=== PATIENT | female | born 1975 ===

== ENCOUNTER → 2022-03-11 15:30 | Outpatient (CLI) | payer OTHER, SELFPAY ==
--- NOTE | ~2022-03-11 | MR_ITS ---
EXAMINATION: MR shoulder RT wo con DATE: 03/11/2022 17:24 INDICATION: Right shoulder pain TECHNIQUE: Magnetic resonance imaging (MRI) of the right shoulder was performed without intravenous c ontrast. Sequences included axial PD-weighted FS FSE, coronal oblique PD-weighted FS FSE, coronal obl ique T2-weighted FS FSE, sagittal PD-weighted FS FSE, and sagittal T1-weighted SE. COMPARISON: None. FINDINGS: Coracoacromial arch: The acromion undersurface is curved in morphology (type II). The coracoacromial ligament is normal. S evere arthrosis at the acromioclavicular joint with severe joint space narrowing, subarticular cystli ke and prominent subarticular edema-like marrow signal changes at both sides of the joint space. Rotator cuff: The supraspinatus, infraspinatus and teres minor tendons are normal. The subscapularis tendon is norm al. Normal rotator cuff muscle bulk and signal. Biceps tendon, glenoid labrum and glenohumeral cartilage: Long head of the biceps tendon is normal. Glenoid labrum is normal. Glenohumeral cartilage is normal. Fluid: Physiologic amount of fluid in the glenohumeral joint and biceps tendon sheath. No loose osteochondr al bodies. No abnormal fluid signal in the subacromial/subdeltoid bursa to suggest bursitis. Bones: Aside from at the acromioclavicular joint there is normal marrow signal. No fracture or pathologic ma rrow replacing process. IMPRESSION: 1. Severe arthrosis at the right acromioclavicular joint with prominent subarticular edema-like and c ystlike changes. Scattered be related to severe osteoarthritis although the cystlike changes could al so represent erosions in the setting of an inflammatory or crystalline arthritis. Reviewed, dictated and finalized at location A. IMPRESSION: 1. Severe arthrosis at the right acromioclavicular joint with prominent subarti cular edema-like and cystlike changes. Scattered be related to severe osteoarth ritis although the cystlike changes could also represent erosions in the settin g of an inflammatory or crystalline arthritis.
== END ==
PROVIDERS: PCP Family Medicine; Visit Provider Orthopaedic Surgery
DX: M19.011 Primary osteoarthritis, right shoulder (principal)
CPT/HCPCS: 73221